=== PATIENT | male | born 1935 | race Caucasian/White ===

== ENCOUNTER 2018-09-18 09:15 | Emergency (ER) | payer MEDICARE ==
[~2018-09-18 09:15] MED LIST: ASCO500C6 PO; ATOR10 PO; CETI10CA5 PO; LISI10TA7 PO; MULT-40 PO; PANT40TA25 PO; SENN-107 PO; TAMS0.4C32 PO
== END 2018-09-18 10:18 | disposition home or self-care (01) ==
LOC: EDH 09:15
DX: S83.91XA Sprain of unspecified site of right knee, initial encounter (principal); Z88.8 Allergy status to other drugs, medicaments and biological substances; Z86.73 Personal history of transient ischemic attack (TIA), and cerebral infarction without residual deficits; X50.1XXA Overexertion from prolonged static or awkward postures, initial encounter; Y93.02 Activity, running; Y92.098 Other place in other non-institutional residence as the place of occurrence of the external cause; Y99.8 Other external cause status
CPT/HCPCS: 29505; 73562

== ENCOUNTER → 2023-03-10 | Outpatient (CLI) | payer MEDICARE ==
[~2023-03-10] MED LIST changes: +LISI10TA24 PO; -LISI10TA7 PO; -PANT40TA25 PO; +PANT40TA54 PO
== END | disposition home or self-care (01) ==
LOC: RAH 12:34
PROVIDERS: ATTEND Urology
DX: N28.1 Cyst of kidney, acquired (principal); N20.0 Calculus of kidney; K80.20 Calculus of gallbladder without cholecystitis without obstruction
CPT/HCPCS: 74176